=== PATIENT | female | born 1995 | race Caucasian/White ===

== ENCOUNTER 2018-10-05 21:02 | Emergency (ER) | payer BC ==
[2018-10-05] MEDS ORDERED: Sodium Chloride 0.9% 1000 ML 1,000 ML ONE (21:44)
[2018-10-05] MEDS ORDERED: Sodium Chloride 0.9% 1000 ML 1,000 ML IV STA (22:14)
[2018-10-05 22:29] LABS: Appearance SLIGHTLY CLOUDY (CLEAR); Bacteria MODERATE /HPF (NEGATIVE); Bilirubin NEGATIVE (NEGATIVE); Blood NEGATIVE Ery/ul (0-5); Epithelial Cells MODERATE /HPF (FEW); Glucose NEGATIVE (NEGATIVE); Ketones NEGATIVE (NEGATIVE); Leukocyte Esterase TRACE (NEGATIVE); Mucus MODERATE /HPF (NEGATIVE); Nitrite NEGATIVE (NEGATIVE); Protein,Urine Dip NEGATIVE (Negative); Specific Gravity 1.023 (1.005-1.025); Urobilinogen NEGATIVE mg/dL (0-1)
--- NOTE | 2018-10-05 22:40 | ERPHSYRPT ---
- History of Present Illness Time Seen by Provider: 10/05/18 22:00 Patient Subjective Stated Complaint: john is 19weeks and concernesd somethnig was wrong states she wasnt feeling baby move as much and was worried she had some pain ni rib area on right side Triage Nursing Assessment: pt alert nad orietnedx3, able to ambulate, pusles equal bilateral radius, able to ambulate by self, pulses equal bialteral radius, pupils perrla2, patient has no spotting , heart tones detected rate of 150, skin warm dry and intact Physician History: PATIENT IS A -1, 18 WEEKS GESTATION WHO COMPLAINS OF LACK OF MOVEMENT. DENIES ABDOMINAL PAIN, VAGINAL BLEEDING, URINARY SYMPTOMS, FEVER OR COUGH. Timing/Duration: day(s) Activites at Onset: none Severity of Pain-Max: none Severity of Pain-Current: none Prior abdominal problems: none Sexual intercourse history: non-contributory Modifying Factors: Improves With: nothing Associated Symptoms: denies symptoms Allergies/Adverse Reactions: Penicillins Allergy (Verified 02/19/16 23:41) Hx Tetanus, Diphtheria Vaccination/Date Given: No Hx Influenza Vaccination/Date Given: No Hx Pneumococcal Vaccination/Date Given: No - Review of Systems Constitutional: No Fever, No Chills Eyes: No Symptoms Ears, Nose, & Throat: No Symptoms Respiratory: No Symptoms, No Cough, No Dyspnea Cardiac: No Chest Pain, No Edema, No Syncope Abdominal/Gastrointestinal: No Symptoms, No Abdominal Pain, No Nausea, No Vomiting, No Diarrhea Genitourinary Symptoms: No Symptoms, No Dysuria Musculoskeletal: No Symptoms, No Back Pain, No Neck Pain Skin: No Symptoms, No Rash Neurological: No Dizziness, No Focal Weakness, No Sensory Changes Psychological: No Symptoms Endocrine: No Symptoms All Other Systems: Reviewed and Negative - Past Medical History Pertinent Past Medical History: No Neurological History: No Pertinent History ENT History: No Pertinent History Cardiac History: No Pertinent History Respiratory History: No Pertinent History Endocrine Medical History: No Pertinent History Musculoskeletal History: No Pertinent History GI Medical History: No Pertinent History History: No Pertinent History Psycho-Social History: No Pertinent History Female Reproductive Disorders: No Pertinent History - Past Surgical History Past Surgical History: No Neuro Surgical History: No Pertinent History Cardiac: No Pertinent History Respiratory: No Pertinent History Gastrointestinal: No Pertinent History Genitourinary: No Pertinent History Musculoskeletal: No Pertinent History Female Surgical History: No Pertinent History - Social History Smoking Status: Never smoker How long have you smoked: i year Exposure to second hand smoke: Yes Drug Use: none Patient Lives Alone: No - Female History Hx Now: Yes Expected Date of Delivery: 03/03/19 - Nursing Vital Signs Nursing Vital Signs: Initial Vital Signs Temperature 98.6 F 10/05/18 21:34 Pulse Rate 100 H 10/05/18 21:34 Respiratory Rate 14 10/05/18 21:34 Blood Pressure 142/76 10/05/18 21:34 O2 Sat by Pulse Oximetry 99 10/05/18 21:34 Pain Scale Pain Intensity 0 - Physical Exam General Appearance: no apparent distress, alert Eye Exam: PERRL/EOMI, eyes nml inspection Ears, Nose, Throat Exam: normal ENT inspection, TMs normal, pharynx normal, moist mucous membranes Neck Exam: normal inspection, non-tender, supple, full range of motion Respiratory Exam: normal breath sounds, lungs clear, No respiratory distress Cardiovascular Exam: regular rate/rhythm, normal heart sounds, normal peripheral pulses Gastrointestinal/Abdomen Exam: soft, normal bowel sounds, other (GRAVID, UTERUS ENLARGED TO LEVEL OF UMBILICUS, NONTENDER), No tenderness, No mass Back Exam: normal inspection, normal range of motion, No CVA tenderness, No vertebral tenderness Extremity Exam: normal inspection, normal range of motion, pelvis stable Neurologic Exam: alert, oriented x 3, cooperative, manager auto II-XII nml as tested, normal mood/affect, sensation nml, No motor deficits Skin Exam: normal color, warm, dry Lymphatic Exam: No adenopathy SpO2 Interpretation: normal SpO2: 99 Ordered Tests: Active Orders 24 hr Category Date Time Status Heart Tones-ED STAT Care 10/05/18 21:36 Active IV Insertion STAT Care 10/05/18 21:36 Active CULTURE,URINE Stat Lab 10/05/18 22:00 Received UA W/RFX UR CULTURE Stat Lab 10/05/18 22:00 Completed Medication Summary Generic Name Dose Route Start Last Admin Trade Name Freq PRN Reason Stop Dose Admin Sodium Chloride 1,000 mls @ 999 mls/hr 10/05/18 22:14 10/05/18 22:15 Sodium Chloride 0.9% 1000 Ml IV 10/05/18 23:14 999 mls/hr .Q1H1M STA Administration Ceftriaxone Sodium/Dextrose 1 g in 50 mls @ 100 mls/hr 10/05/18 22:41 Rocephin 1 Gm-D5w 50 Ml Bag IV 10/05/18 23:10 STAT STA Discontinued Medications Generic Name Dose Route Start Last Admin Trade Name Baldemar PRN Reason Stop Dose Admin Sodium Chloride Confirm 10/05/18 21:44 Sodium Chloride 0.9% 1000 Ml Administered 10/05/18 21:45 Dose 1,000 mls @ ud .ROUTE .STK-MED ONE Lab/Rad Data: Laboratory Results 10/05/18 Range/Units 22:00 Urine Color YELLOW (YELLOW) Urine Appearance SLIGHTLY CLOUDY (CLEAR) Urine pH 6.0 (5-6) Ur Specific Jackson 1.023 (1.005-1.025) Urine Protein NEGATIVE (Negative) Urine Ketones NEGATIVE (NEGATIVE) Urine Blood NEGATIVE (0-5) Gerry/ul Urine Nitrite NEGATIVE (NEGATIVE) Urine Bilirubin NEGATIVE (NEGATIVE) Urine Urobilinogen NEGATIVE (0-1) mg/dL Ur Leukocyte Esterase TRACE (NEGATIVE) Urine WBC (Auto) 6-10 (0-5) /HPF Urine RBC (Auto) 6-10 (0-2) /HPF U Epithel Cells (Auto) MODERATE (FEW) /HPF Urine Bacteria (Auto) MODERATE (NEGATIVE) /HPF Urine Mucus (Auto) MODERATE (NEGATIVE) /HPF Urine Culture Reflexed YES (NO) Urine Glucose NEGATIVE (NEGATIVE) mg/dL - Progress Progress Note: 10/05/18 22:47 IV NORMAL SALINE, ROCPEHIN 1GM IVPB 10/05/18 22:47 Counseled pt/family regarding: lab results, diagnosis, need for follow-up - Departure Time of Disposition: 22:22 Departure Disposition: Home Clinical Impression: , URINARY TRACT INFECTION Condition: Stable Critical Care Time: No Referrals: RAKAN BARGER [Primary Care Provider] - Additional Instructions: DRINK PLENTY OF FLUIDS. ANTIBIOTIC MACROBID 100MG TWICE DAILY FOR 10 DAYS. CONSULT YOUR PRIMARY CARE PROVIDER FOR FOLLOWUP IN 1 WEEK. Prescriptions: Nitrofurantoin Macro 100 mg [Macrobid 100MG Capsule] 100 mg PO BID #20 cap
[2018-10-05] MEDS ORDERED: ROCEPHIN 1 Gm-D5w 50 ml Bag** 1 G/50 ML IVPB IV STA (22:41)
[2018-10-05] MEDS ORDERED: ROCEPHIN 1 Gm-D5w 50 ml Bag** 1 G/50 ML IVPB IV ONE (22:45)
[2018-10-05 23:08] VITALS: BP 121/75; PULSE 100; O2SAT 98
== END 2018-10-05 23:14 | disposition home or self-care (01) ==
LOC: ED 21:02
DX: O23.42 Unspecified infection of urinary tract in pregnancy, second trimester (principal); Z3A.19 19 weeks gestation of pregnancy
CPT/HCPCS: 36000; 81001; 87086; 96360; 96365; 99284; J0696

== ENCOUNTER 2018-11-19 20:11 | Emergency (ER) | payer BC ==
--- NOTE | 2018-11-19 20:32 | ERPHSYRPT ---
- History of Present Illness Time Seen by Provider: 11/19/18 20:32 Source: patient Exam Limitations: no limitations Physician History: 23 y/o white female who is 25 weeks presents with coughing intermittently for a week and a half. pt has tried several otc meds including mucomyst, pseudoephedrine, claritin, robitussin. seen by [facility] and strep test negative. Timing/Duration: week(s) (1.5) Cough Quality/Degree: mild, dry cough Possible Cause: no prior episodes Modifying Factors: Improves With: coughing Associated Symptoms: cough Allergies/Adverse Reactions: Penicillins Allergy (Verified 02/19/16 23:41) Home Medications: Omeprazole 40 mg PO DAILY 11/19/18 [History] Hx Tetanus, Diphtheria Vaccination/Date Given: No Hx Influenza Vaccination/Date Given: No Hx Pneumococcal Vaccination/Date Given: No - Review of Systems Constitutional: No Symptoms Eyes: No Symptoms Ears, Nose, & Throat: No Symptoms Respiratory: Cough Cardiac: No Symptoms Abdominal/Gastrointestinal: No Symptoms Genitourinary Symptoms: No Symptoms Musculoskeletal: No Symptoms Skin: No Symptoms Neurological: No Symptoms Psychological: No Symptoms Endocrine: No Symptoms Hematologic/Lymphatic: No Symptoms Immunological/Allergic: No Symptoms All Other Systems: Reviewed and Negative - Past Medical History Pertinent Past Medical History: No Neurological History: No Pertinent History ENT History: No Pertinent History Cardiac History: No Pertinent History Respiratory History: No Pertinent History Endocrine Medical History: No Pertinent History Musculoskeletal History: No Pertinent History GI Medical History: No Pertinent History History: No Pertinent History Psycho-Social History: No Pertinent History Female Reproductive Disorders: No Pertinent History - Past Surgical History Past Surgical History: No Neuro Surgical History: No Pertinent History Cardiac: No Pertinent History Respiratory: No Pertinent History Gastrointestinal: No Pertinent History Genitourinary: No Pertinent History Musculoskeletal: No Pertinent History Female Surgical History: No Pertinent History - Social History Smoking Status: Never smoker How long have you smoked: i year Exposure to second hand smoke: Yes Drug Use: none Patient Lives Alone: No - Nursing Vital Signs Nursing Vital Signs: Initial Vital Signs Pulse Rate 101 H 11/19/18 20:54 Respiratory Rate 18 11/19/18 20:54 Blood Pressure 143/82 11/19/18 20:54 O2 Sat by Pulse Oximetry 99 11/19/18 20:54 Pain Scale Pain Intensity 0 - Physical Exam General Appearance: no apparent distress, alert, anxiety Eye Exam: PERRL/EOMI, eyes nml inspection Ears, Nose, Throat Exam: normal ENT inspection, moist mucous membranes Neck Exam: normal inspection, non-tender, supple, full range of motion Respiratory Exam: normal breath sounds, lungs clear, airway intact, No chest tenderness, No respiratory distress Cardiovascular Exam: regular rate/rhythm, normal heart sounds, normal peripheral pulses Gastrointestinal/Abdomen Exam: soft, normal bowel sounds, No tenderness Pelvic Exam: not done Rectal Exam: not done Back Exam: normal inspection, normal range of motion, No CVA tenderness, No vertebral tenderness Extremity Exam: normal inspection, normal range of motion, pelvis stable Neurologic Exam: alert, oriented x 3, cooperative, child care teacher II-XII nml as tested Skin Exam: normal color, warm, dry Lymphatic Exam: No adenopathy SpO2 Interpretation: normal O2 Delivery: Room Air - Course Nursing assessment & vital signs reviewed: Yes Ordered Tests: Medication Summary Generic Name Dose Route Start Last Admin Trade Name Freq PRN Reason Stop Dose Admin Acetaminophen/Codeine Phosphate 10 ml 11/19/18 22:26 Tylenol W/ Codeine 5 Ml Ud Cup PO 11/19/18 22:27 STAT ONE Ceftriaxone Sodium 1,000 mg 11/19/18 22:25 Rocephin 1000 Mg Inj IM 11/19/18 22:26 STAT ONE - Progress Progress: re-examined, unchanged Air Movement: good Blood Culture(s) Obtained: No Antibiotics given: Yes Counseled pt/family regarding: diagnosis, need for follow-up - Departure Departure Disposition: Home Clinical Impression: Bronchitis Condition: Stable Critical Care Time: No Referrals: RAKAN BARGER [Primary Care Provider] - Additional Instructions: drink plenty of fluids. call your maintenance clerk tomorrow morning to make them aware you are still having symptoms and to give additional instructions and management. tomorrow resume same ob instructions for your cough.
[2018-11-19] MEDS ORDERED: Rocephin 1000 MG INJ IM ONE (22:25)
[2018-11-19] MEDS ORDERED: TYLENOL W/ CODEINE 5 ML UD CUP PO ONE (22:26)
[2018-11-19] MEDS ORDERED: Rocephin 1000 MG INJ ONE (22:43)
[2018-11-19] MEDS ORDERED: TYLENOL W/ CODEINE 5 ML UD CUP ONE (22:44)
[2018-11-19 23:16] VITALS: BP 103/76; PULSE 72; O2SAT 97
== END 2018-11-19 23:22 | disposition home or self-care (01) ==
LOC: ED 20:11
DX: J40 Bronchitis, not specified as acute or chronic (principal); Z33.1 Pregnant state, incidental
CPT/HCPCS: 96372; 99283; J0696; A9270-GY

== ENCOUNTER 2025-06-16 12:50 | Emergency (ER) | payer OTHER ==
--- NOTE | 2025-06-16 12:53 | ERPHSYRPT ---
- History of Present Illness Time Seen by Provider: 06/16/25 12:53 Source: patient, family Exam Limitations: no limitations Physician History: This is a 29-year-old white female patient arrives by private vehicle and is a patient of Dr. Mann and concrete finisher out of [facility] with left side labial cyst. It was larger 2 days ago. Yesterday, the patient squeezed the cyst and clear yellowish fluid came out and it is now smaller. It is more uncomfortable after she squeezed this yesterday. She has not had a fever. There is been no redness to the site. She has an appointment to see her concrete finisher on 06/22/2025. The patient is 31 weeks along. Timing/Duration: day(s) (2) Quality: painful (Mild) Severity: mild Location: other (Left labia) Possible Causes: other (Bartholin cyst) Associated Symptoms: denies symptoms Allergies/Adverse Reactions: Penicillins Allergy (Verified 02/19/16 23:41) Home Medications: Omeprazole 40 mg PO DAILY 11/19/18 [History] Hx Tetanus, Diphtheria Vaccination/Date Given: No Hx Influenza Vaccination/Date Given: No Hx Pneumococcal Vaccination/Date Given: No Travel Risk - International Travel Have you traveled outside of the country in past 3 weeks: No - Emerging Infectious Disease Are you exhibiting symptoms associated with any current EIDs: No - Review of Systems Constitutional: No Symptoms Eyes: No Symptoms Ears, Nose, & Throat: No Symptoms Respiratory: No Symptoms Cardiac: No Symptoms Abdominal/Gastrointestinal: No Symptoms Genitourinary Symptoms: Other (Left labial Bartholin cyst) Musculoskeletal: No Symptoms Skin: No Symptoms Neurological: No Symptoms Psychological: No Symptoms Endocrine: No Symptoms Hematologic/Lymphatic: No Symptoms Immunological/Allergic: No Symptoms All Other Systems: Reviewed and Negative - Past Medical History Pertinent Past Medical History: No Neurological History: No Pertinent History ENT History: No Pertinent History Cardiac History: No Pertinent History Respiratory History: No Pertinent History Endocrine Medical History: No Pertinent History Musculoskeletal History: No Pertinent History GI Medical History: No Pertinent History History: No Pertinent History Psycho-Social History: No Pertinent History Female Reproductive Disorders: No Pertinent History - Past Surgical History Past Surgical History: No Neuro Surgical History: No Pertinent History Cardiac: No Pertinent History Respiratory: No Pertinent History Gastrointestinal: No Pertinent History Genitourinary: No Pertinent History Musculoskeletal: No Pertinent History Female Surgical History: No Pertinent History - Social History Smoking Status: Never smoker How long have you smoked: i year Exposure to second hand smoke: Yes Drug Use: none Patient Lives Alone: No - Physical Exam General Appearance: no apparent distress, alert, anxiety Eye Exam: PERRL/EOMI, eyes nml inspection Ears, Nose, Throat Exam: normal ENT inspection, moist mucous membranes Neck Exam: normal inspection, non-tender, supple, full range of motion Respiratory Exam: airway intact, No chest tenderness, No respiratory distress Gastrointestinal/Abdomen Exam: No tenderness Pelvic Exam: other (Left labial Bartholin cyst. Small without fluctuance. No abscess or evidence of cellulitis present. Minimally tender to palpation) Rectal Exam: not done Back Exam: normal inspection, normal range of motion, No CVA tenderness, No vertebral tenderness Extremity Exam: normal inspection, normal range of motion, pelvis stable Neurologic Exam: alert, oriented x 3, cooperative, shop assistant II-XII nml as tested, nml cerebellar function, nml station & gait, sensation nml Skin Exam: normal color, warm, dry Lymphatic Exam: No adenopathy SpO2 Interpretation: normal O2 Delivery: Room Air - Course Nursing assessment & vital signs reviewed: Yes - Progress Progress: unchanged Progress Note: 06/16/25 13:40 My medical decision making and the assignment of low complexity of this patient's medical issue today is based on review of the patient's past medical history, reviewed patient medication list, reviewed patient drug allergy list, history present illness and physical findings on examination. No radiographic or laboratory studies are necessary at this time. Differential diagnosis includes but is not limited to sebaceous cyst, Bartholin cyst, subcutaneous tumor 06/16/25 13:42 Together, we decided to send a prescription of Keflex 500 mg orally 3 times a day for 5 days if she notices redness occurring before her visit next week with her concrete finisher. 06/16/25 13:45 I opted not to incise or drain this site as it is small and there is no evidence of abscess or infection. In addition, she has minimal tenderness present even with palpation. Counseled pt/family regarding: diagnosis Medical Desision Making - Diagnostic Testing Diagnostic test were ordered, analyzed, and reviewed by me: No - Risk of complications Low Risk: Low risk of morbidity from additional dx testing or treatment The pt has a mod risk of morbidity or mortality based on: Need for prescription drug management - Departure Departure Disposition: Home Clinical Impression: Bartholin cyst Condition: Stable Critical Care Time: No Referrals: RAKAN MANN [Primary Care Provider, [facility]ILY [facility]] - Follow up/PCP as directed Additional Instructions: Warm sitz bath as discussed 3 times a day. Use Tylenol for pain control. Keep your appointment with your concrete finisher next week. Only start the Keflex if necessary. That is, if you noticed increase in size, tenderness and redness.
[2025-06-16 13:20] VITALS: RESP 18; TEMP 97.6
[2025-06-16 14:07] VITALS: BP 136/78; PULSE 98; O2SAT 99
== END 2025-06-16 14:07 | disposition home or self-care (01) ==
LOC: ED 12:50
DX: N75.0 Cyst of Bartholin's gland (principal); Z33.1 Pregnant state, incidental; Z79.899 Other long term (current) drug therapy